=== PATIENT | male | born 1985 | race Caucasian/White ===

== ENCOUNTER 2016-12-11 22:11 | Emergency (ER) | payer MEDICAID, OTHER, SELFPAY ==
[~2016-12-11] VITALS: Ht 172.7 cm; Wt 75.4 kg
[2016-12-11 22:11] VITALS: BP 140/84
--- NOTE | 2016-12-12 01:20 | REPUSA ---
CLINICAL HISTORY: Neck pain. TECHNIQUE: Multiple axial images were obtained through the cervical spine. Images were also reconstru cted in coronal and sagittal planes. The study was performed without IV contrast. COMMENTS: Reversal of the cervical lordosis which can be secondary to muscular spasm and pain. Moderate focal spondylosis at C6-C7. There is no fracture or spondylolisthesis visualized. The paraspinal soft tissues are unremarkable. There are no lytic or blastic lesions. IMPRESSION: 1. No fracture or spondylolisthesis. 2. Reversal of cervical lordosis is seen, suggesting muscular spasm. 3. Spondylosis. Thank you for your kind referral of this patient.
--- NOTE | 2016-12-12 01:30 | REPUSA ---
HISTORY: Trauma. COMPARISON: None. TECHNIQUE: Multiple thin section helically-acquired axially-displayed and helically acquired coronall y displayed computed tomographic images of the face are obtained from the mandible through the fronta l sinuses, with images obtained at soft tissue and bone window. 2D reformatted images were performed. FINDINGS: Normal bony mineralization. No fractures. Normal orbits. Normal, clear paranasal sinuses. Normal oral and nasal cavities. Normal infratemporal fossa and deep parapharyngeal spaces with normal muscles of mastication. Normal parotid and submandibular glands. IMPRESSION: Normal examination of the face. Thank you for your kind referral of this patient
== END 2016-12-12 03:20 | disposition left against medical advice (07) ==
LOC: M ED 22:11
DX: S09.90XA Unspecified injury of head, initial encounter (principal); F32.9 Major depressive disorder, single episode, unspecified; W50.0XXA Accidental hit or strike by another person, initial encounter; Y92.9 Unspecified place or not applicable; Y93.9 Activity, unspecified; Y99.9 Unspecified external cause status; F17.200 Nicotine dependence, unspecified, uncomplicated; F12.10 Cannabis abuse, uncomplicated; M47.812 Spondylosis without myelopathy or radiculopathy, cervical region

== ENCOUNTER 2017-08-26 10:56 | Emergency (ER) | payer OTHER, MEDICAID ==
[2017-08-26] MEDS: NS 1,000 ML IV (12:00)
[2017-08-26] MEDS: PANTOPRAZOLE 40MG INJ (PROTONIX) (C9113) IV (12:00)
[2017-08-26 12:12] LABS: BASO # 0.1 10^3/uL (0.0-0.2); BASO % 0.8 % (0.0-1.0); EOS # 0.3 10^3/uL (0.0-0.50); EOS % 2.5 % (0.0-3.0); HEMATOCRIT 47.5 % (42.0-52.0); HEMOGLOBIN 16.3 g/dl (13.5-17.5); IMMATURE GRANULOCYTE % 1.3 % (0-3.0); LYMPH # 3.2 10^3/uL (1.5-4.5); LYMPH % 27.8 % (24.0-44.0); MEAN CORPUSCULAR HEMOGLOBIN 31.7 pg (27.0-33.0); MEAN CORPUSCULAR HGB CONC 34.3 g/dl (32.0-36.5); MEAN CORPUSCULAR VOLUME 92.4 fl (80.0-96.0); MONO # 0.8 10^3/uL (0.0-0.8); MONO % 6.7 % (0.0-5.0); NEUTROPHILS # 7.1 10^3/uL (1.8-7.7); NEUTROPHILS % 60.9 % (36.0-66.0); PLATELET COUNT, AUTOMATED 252 10^3/uL (150-450); RED BLOOD COUNT 5.14 10^6/uL (4.30-6.10); RED CELL DISTRIBUTION WIDTH 11.9 % (11.5-14.5); WHITE BLOOD COUNT 11.6 10^3/uL (4.0-10.0)
[2017-08-26] MEDS: MORPHINE 4 MG/ML 1ML VIAL/SYRINGE (J2270) IV (12:16)
[2017-08-26 12:25] LABS: INR 0.92; PROTHROMBIN TIME 12.4 SECONDS (12.4-14.5)
[2017-08-26 12:26] LABS: PARTIAL THROMBOPLASTIN TIME 27.1 SECONDS (26.8-37.9)
[2017-08-26 12:38] LABS: ALBUMIN 4.1 GM/DL (3.2-5.2); ALBUMIN/GLOBULIN RATIO 1.14 (1.00-1.93); ALKALINE PHOSPHATASE 110 U/L (45-117); ALT/SGPT 23 U/L (12-78); ANION GAP 3 MEQ/L (8-16); AST/SGOT 12 U/L (7-37); BILIRUBIN,DIRECT 0.1 MG/DL (0.0-0.2); BILIRUBIN,TOTAL 0.5 MG/DL (0.2-1.0); BLOOD UREA NITROGEN 14 MG/DL (7-18); CALCIUM LEVEL 9.1 MG/DL (8.5-10.1); CARBON DIOXIDE LEVEL 27 MEQ/L (21-32); CHLORIDE LEVEL 110 MEQ/L (98-107); CREATININE FOR GFR 0.84 MG/DL (0.70-1.30); GLOMERULAR FILTRATION RATE > 60.0 (>60); GLUCOSE, FASTING 77 MG/DL (70-100); LIPASE 78 U/L (73-393); POTASSIUM SERUM 4.5 MEQ/L (3.5-5.1); SODIUM LEVEL 140 MEQ/L (136-145); TOTAL PROTEIN 7.7 GM/DL (6.4-8.2)
[2017-08-26] MEDS: GASTROGRAFIN SOLUTION 30ML PO ×2 (13:13→13:45)
[2017-08-26] MEDS ORDERED: ISOVUE-370 76% 100ML VIAL (Q9967) As Ordered (14:26)
[2017-08-26] MEDS: SUCRALFATE 1 GM TAB PO (15:00)
== END 2017-08-26 15:15 | disposition home or self-care (01) ==
LOC: M ED 10:56
DX: K21.9 Gastro-esophageal reflux disease without esophagitis (principal); K27.9 Peptic ulcer, site unspecified, unspecified as acute or chronic, without hemorrhage or perforation; Z98.890 Other specified postprocedural states
CPT/HCPCS: C9113

== ENCOUNTER 2017-09-25 23:18 | Emergency (ER) | payer OTHER ==
[2017-09-26] MEDS: PANTOPRAZOLE 40MG INJ (PROTONIX) (C9113) IV (00:41)
[2017-09-26 00:42] LABS: BASO # 0.1 10^3/uL (0.0-0.2); BASO % 0.7 % (0.0-1.0); EOS # 0.2 10^3/uL (0.0-0.50); EOS % 1.3 % (0.0-3.0); HEMATOCRIT 48.6 % (42.0-52.0); HEMOGLOBIN 16.7 g/dl (13.5-17.5); IMMATURE GRANULOCYTE % 0.7 % (0-3.0); LYMPH # 3.4 10^3/uL (1.5-4.5); LYMPH % 25.1 % (24.0-44.0); MEAN CORPUSCULAR HEMOGLOBIN 32.3 pg (27.0-33.0); MEAN CORPUSCULAR HGB CONC 34.4 g/dl (32.0-36.5); MONO % 7.6 % (0.0-5.0); NEUTROPHILS # 8.6 10^3/uL (1.8-7.7); NEUTROPHILS % 64.6 % (36.0-66.0); PLATELET COUNT, AUTOMATED 226 10^3/uL (150-450); RED BLOOD COUNT 5.17 10^6/uL (4.30-6.10); RED CELL DISTRIBUTION WIDTH 12.1 % (11.5-14.5); WHITE BLOOD COUNT 13.4 10^3/uL (4.0-10.0)
[2017-09-26] MEDS: GI COCKTAIL 50ML BTL(HYOSCYAMINE/MAALOX/LIDOCAINE VISCOUS)(1:3:1) PO (00:45)
[2017-09-26 01:08] LABS: ALBUMIN 4.3 GM/DL (3.2-5.2); ALBUMIN/GLOBULIN RATIO 1.23 (1.00-1.93); ALKALINE PHOSPHATASE 101 U/L (45-117); ALT/SGPT 30 U/L (12-78); ANION GAP 4 MEQ/L (8-16); AST/SGOT 20 U/L (7-37); BILIRUBIN,DIRECT 0.1 MG/DL (0.0-0.2); BILIRUBIN,TOTAL 0.4 MG/DL (0.2-1.0); BLOOD UREA NITROGEN 14 MG/DL (7-18); CALCIUM LEVEL 9.6 MG/DL (8.5-10.1); CARBON DIOXIDE LEVEL 31 MEQ/L (21-32); CHLORIDE LEVEL 105 MEQ/L (98-107); GLOMERULAR FILTRATION RATE > 60.0 (>60); GLUCOSE, FASTING 95 MG/DL (70-100); LIPASE 76 U/L (73-393); POTASSIUM SERUM 4.5 MEQ/L (3.5-5.1); SODIUM LEVEL 140 MEQ/L (136-145); TOTAL PROTEIN 7.8 GM/DL (6.4-8.2)
== END 2017-09-26 01:37 | disposition home or self-care (01) ==
LOC: M ED 23:18
DX: R10.13 Epigastric pain (principal); K25.9 Gastric ulcer, unspecified as acute or chronic, without hemorrhage or perforation; Z79.899 Other long term (current) drug therapy; F17.200 Nicotine dependence, unspecified, uncomplicated
CPT/HCPCS: C9113

== ENCOUNTER 2018-06-07 01:40 | Inpatient (IN) | payer MEDICAID, OTHER, SELFPAY ==
[~2018-06-07] VITALS: Ht 167.6 cm; Wt 84.5 kg
[~2018-06-07 01:40] MED LIST: CARA1TAB6 PO; NORCOTAB PO; OMEP40CA2 PO
[2018-06-07 02:21] LABS: HEMATOCRIT 49.3 % (42.0-52.0); HEMOGLOBIN 16.9 g/dl (13.5-17.5); MEAN CORPUSCULAR HEMOGLOBIN 31.9 pg (27.0-33.0); MEAN CORPUSCULAR HGB CONC 34.3 g/dl (32.0-36.5); PLATELET COUNT, AUTOMATED 238 10^3/uL (150-450); WHITE BLOOD COUNT 13.2 10^3/uL (4.0-10.0)
[2018-06-07 02:44] LABS: AMPHETAMINES LEVEL URINE NEGATIVE (NEGATIVE); BARBITURATES URINE NEGATIVE (NEGATIVE); BENZODIAZEPINES URINE NEGATIVE (NEGATIVE); CANNABINOIDS URINE POSITIVE (NEGATIVE); COCAINE METABOLITE URINE NEGATIVE (NEGATIVE); METHADONE URINE NEGATIVE (NEGATIVE); OPIATES URINE NEGATIVE (NEGATIVE); PHENCYCLIDINE URINE NEGATIVE (NEGATIVE)
[2018-06-07 02:54] LABS: ACETAMINOPHEN LEVEL < 2.0 UG/ML (10.0-30.0); ALBUMIN 4.1 GM/DL (3.2-5.2); ALT/SGPT 25 U/L (12-78); BILIRUBIN,DIRECT 0.1 MG/DL (0.0-0.2); BILIRUBIN,TOTAL 0.4 MG/DL (0.2-1.0); BLOOD UREA NITROGEN 18 MG/DL (7-18); CALCIUM LEVEL 8.7 MG/DL (8.5-10.1); CARBON DIOXIDE LEVEL 25 MEQ/L (21-32); CHLORIDE LEVEL 107 MEQ/L (98-107); CREATININE FOR GFR 0.88 MG/DL (0.70-1.30); ETHYL ALCOHOL (ETHANOL) < 0.003 % (0.000-0.010); GLOMERULAR FILTRATION RATE > 60.0 (>60); GLUCOSE, FASTING 95 MG/DL (70-100); POTASSIUM SERUM 4.2 MEQ/L (3.5-5.1); SALICYLATE LEVEL 2.3 MG/DL (5.0-30.0); SODIUM LEVEL 141 MEQ/L (136-145); TOTAL PROTEIN 7.2 GM/DL (6.4-8.2)
[2018-06-07] MEDS ORDERED: NICOTINE 21MG/24HR 1 EA TRANSDERMAL TD ONE (10:45)
[2018-06-07] MEDS ORDERED: OLANZapine ORAL DISINTEGRATING TAB 5MG PO PRN (17:15)
[2018-06-07] MEDS ORDERED: MOM 30ML SUSPENSION UDC PO PRN (17:15)
[2018-06-07 20:31] VITALS: BP 138/80
[2018-06-07] MEDS: traZODone 50 MG TAB PO PRN (22:37)
[2018-06-08 06:55] VITALS: BP 120/74
--- NOTE | 2018-06-08 08:47 | HPEPDOC ---
[facility] Medical History & Physical Date of Admission Jun 07, 2018 History and Physical PCP: None ATTENDING: Dr. Maria Del Carmen Thrasher HPI: 32 yo M admitted to [facility] for unspecified depressive disorder, being m edically examined today. No acute medical complaints today. Denies any fevers, chills, weakness, fatigue, SEGURA, CP, SOB, cough, palpitations, abdominal pain, N/V/D or changes in bowel or bladder habits. PMHx: Anxiety Depression History of SI GERD/PUD PSHX: Denies SOCHX: Resides in: [facility] [place] Marital Status: Significant other Kids: 2 Employment: Unemployed Tobacco use: 10 per day ETOH: Denies Illicit Drugs: Last used marijuana a few months ago IV Drug Use: Denies Tattoos done unprofessionally: 2 FAMHX: Mother: Alive, well Father: Unknown Siblings: One brother, 2 sisters Alive, well Children: Alive, well Unexpected deaths due to medical reasons: None. ROS: As noted in HPI, otherwise 11pt ROS of systems reviewed and remarkable for occasional abdominal pain. He states he has not had any abdominal discomfort recently. It usually occurs when he eats certain foods. He gets an acid taste in his mouth as well. He has been treated in the past for reflux. Does not take any medication on a regular basis. PE: GEN: 32 yo M, appears stated age. Well-nourished, well developed. No acute distress. Alert and oriented x 3. Flat affect, avoids eye contact HEENT: Normocephalic, atraumatic. Pupils are equal, round, and reactive to light. Extraocular movements are intact. No nystagmus appreciated. Sclera are nonicteric. Conjunctiva without injection. Nose midline. Nasal turbinates without bogginess. EACs both patent BL. TMs both visualized and teixeira with good cone of light, no bulging or erythema. No facial asymmetry. Moist mucous membranes. Dentition fair. Pharynx pink and moist, no cobblestoning. Neck supple, trachea midline. No lymphadenopathy or thyromegaly appreciated. CHEST: Regular rate and rhythm, +S1, +S2 LUNGS: Clear to auscultation bilaterally. No wheezes, rales, or rhonchi. Breathing appears symmetric and easy. Patient is speaking in full sentences. No accessory muscle use. ABD: Round, soft, non-tender, non-distended. +Bowel sounds throughout. No rebound or guarding. No costovertebral angle tenderness. EXT: Pulses 2+ bilaterally dorsalis pedis and radial. No lower extremity edema appreciated. SKIN: [place], dry, warm. Capillary refill <2sec. No rashes. NEURO: Alert and oriented x 3. Cranial nerves III-XII are intact. No focal deficits appreciated. EKG: Pending A&P: 32 yo M admitted to [facility] for unspecified depressive disorder 1. Psych. Plan per Psychiatry. Obtain baseline EKG to assure the safety of psychiatric medications as they can prolong the QT interval. 2. Nicotine dependence. Patch available. 3. GERD. Pepcid 10 mg twice a day as needed. 4. Follow up. No Primary Care Provider. Will attempt to establish PCP on discharge. 5. Substance use. Management per psychiatry. 6. Leukocytosis. Patient is afebrile. Asymptomatic. Possible stress response. Recheck CBC in a.m. 7. Staff member Kobe present throughout exam. Vital Signs Vital Signs Date Time Temp Pulse Resp B/P (MAP) Pulse Ox O2 Delivery O2 Flow Rate FiO2 06/08/18 06:55 97.8 52 16 120/74 (89) 06/07/18 20:06 99 06/07/18 06:36 Room Air Laboratory Data Labs 24H Item Value Date Time White Blood Count 13.2 10^3/uL H 06/07/18208 Red Blood Count 5.30 10^6/uL 06/07/18 020 Hemoglobin 16.9 g/dl 06/07/18208 Mean Corpuscular Volume 93.0 fl 06/07/18208 Hematocrit 49.3 % 06/07/18208 Mean Corpuscular Hemoglobin 31.9 pg 06/07/18208 Mean Corpuscular Hemoglobin Concent 34.3 g/dl 06/07/18208 Red Cell Distribution Width 12.2 % 06/07/18208 Platelet Count 238 10^3/uL 06/07/18208 Sodium Level 141 MEQ/L 06/07/18208 Potassium Level 4.2 MEQ/L 06/07/18208 Chloride Level 107 MEQ/L 06/07/18208 Carbon Dioxide Level 25 MEQ/L 06/07/18208 Anion Gap 9 MEQ/L 06/07/18208 Blood Urea Nitrogen 18 MG/DL 06/07/18 020 Creatinine 0.88 MG/DL 06/07/18208 Glomerular Filtration Rate > 60.0 06/07/18208 Fasting Glucose 95 MG/DL 06/07/18 0209 Calcium Level 8.7 MG/DL 06/07/18208 Total Bilirubin 0.4 MG/DL 06/07/18208 Direct Bilirubin 0.1 MG/DL 06/07/18208 Aspartate Amino Transf (AST/SGOT) 16 U/L 06/07/18 020 Alanine Aminotransferase (ALT/SGPT) 25 U/L 06/07/18208 Alkaline Phosphatase 100 U/L 06/07/18208 Total Protein 7.2 GM/DL 06/07/18208 Albumin 4.1 GM/DL 06/07/18208 Albumin/Globulin Ratio 1.32 06/07/18208 Thyroid Stimulating Hormone (TSH) 3.560 uIU/ML 06/07/18208 Salicylates Level 2.3 MG/DL L 06/07/18208 Urine Opiates Screen NEGATIVE 06/07/18204 Urine Methadone Screen NEGATIVE 06/07/18204 Acetaminophen Level < 2.0 UG/ML L 06/07/18208 Urine Barbiturates Screen NEGATIVE 06/07/18204 Urine Phencyclidine Screen NEGATIVE 06/07/18204 Urine Amphetamines Screen NEGATIVE 06/07/18204 Urine Benzodiazepines Screen NEGATIVE 06/07/18204 Urine Cocaine Metabolite Screen NEGATIVE 06/07/18204 Urine Cannabinoids Screen POSITIVE H 06/07/18204 Ethyl Alcohol Level < 0.003 % 06/07/18208 Home Medications No Active Prescriptions or Reported Meds Allergies Coded Allergies: Latex (Unverified Allergy, Mild, 06/08/18) patient states reaction to condoms, rash and itching Zuleyma Hoffmann Jun 08, 2018 08:47
[2018-06-08] MEDS: FAMOTIDINE 20 MG TAB PO SCH ×2 (09:29→20:58)
[2018-06-08] MEDS: PILL CRUSHER/CUTTER 1 EACH XX PRN (09:29)
--- NOTE | 2018-06-08 10:17 | MHHPEPDOC ---
General Date Of Admission: Jun 07, 2018 Legal Status: 9.39 Chief Complaint Patient held a knife to his throat and threatened to kill himself History of Present Illness HISTORY OF THE PRESENT ILLNESS: Patient is a 32 -year-old , male, who, as per Ed report: "Reason for Referral * PT is +SI Chief Complaint PT states he has been feeling depressed for a few months with trigger unknown.Tonight he took a steak knife and held it to his throat saying his was going to kill himself. His girlfriend of 3 years took the knife from him and called 911. PT repeatedly answers "I don't remember" when asked to discuss why he was suicidal or what his stressors are. Asked PT if he typically has memory issues and he says yes and then declines a TBI. Earle asked if he is suicidal "A little bit" When asked if he has hallucinations "Not sure" PT does states that the last month his depression symptoms have been at their worse and mentions being unemployed and that this time of year is boring. He will not CFS and isaccepting of being admitted stating this is the first time he has ever acted on a suicidal thought "So it will probably happen again". Psychiatric Review of Systems Depression (2 or more weeks): depressed mood (for months), anhedonia, insomnia/hypersomnia, decreased energy, difficulty concentrating, appetite changes, suicidal thoughts (He said he has been having them for months), other (Hopelessness and helplessness: " a litle") Laura (4 or more days of): denies Psychosis: denies PTSD: denies Anxiety: gen/non-specific anxiety, situational anxiety, stressor related anxiety, panic attacks Anxiety/ 6 months or more of: restlessness, keyed up, difficulty concentrating, irritability, muscle tension, sleep disturbance Past Psychiatric History Previous Psychiatric Diagnosis: Denies Previous Psychiatric Admissions: Denies Suicide Attempts: Denies but when he came to the ED his GF said he had put a knife to his throat Psychiatric Follow-up: Denies Psychiatric medications: Denies Past Medical History Medical Problems PMHx: Anxiety Depression History of SI GERD/PUD PSHX: Denies SOCHX: Resides in: [facility] [place] Marital Status: Significant other Kids: 2 Employment: Unemployed Tobacco use: 10 per day ETOH: Denies Illicit Drugs: Last used marijuana a few months ago IV Drug Use: Denies Tattoos done unprofessionally: 2 FAMHX: Mother: Alive, well Father: Unknown Siblings: One brother, 2 sisters Alive, well Children: Alive, well Unexpected deaths due to medical reasons: None. Head Injury: No Seizures: Yes (He doesn't know what caused it, he never received tx. for it) Hospitalizations: Yes (this one) Surgeries: No Family Medical/Psychiatric HX Medical Problems he is not aware of Psychiatric Disorders: No Addiction: No Suicide Attemps/Completions: Yes (his uncle) Addiction History denies Social History Childhood: He said "it was shitty", he said his parents had frequent fights, they slammed the doors, they yelled at each othe Abuse/Trauma: Denies Current Living Situation: Lives with a friend Education: Employment: Unemployed Social Support: the friend he lives with Legal: Marital: He says he has never been , he has two children and can't see them, they are from a previous relationship. Now he has another GF (the one who called the saddle maker on him). He says he hates women Mental Status Examination General Appearance: well groomed, appears stated age, hospital scubs/clothing Build: average Demeanor: hostile, guarded Eye Contact: avoidant Activity: hostile Behavior: resistant, loss of interests Speech: non-spontaneous, impoverished Mood: depressed, anxious, angry Affect: constricted, labile, hostile Thought Process: concrete Thought Content (Delusions): paranoia Thought Content (Other): guarded, appears paranoid Thought Content (Aggressive): none reported Perception (Hallucinations): none reported Perception (Other): none reported Cognition (Impairment of): none reported Cognition(Intelligence Est.): MR Oriented: Awake, Alert Insight: poor Judgment: Poor Psychosis: Denies Diagnoses 1. Major Depressive Disorder 2. Intellectual disability Initial Treatment Plan 1. Patient was admitted on a [9.39] status. 2. Complete history was obtained. 3. With patients permission, family will be contacted and database will be expanded. 4. Patients medication regimen will be reviewed and changed accordingly. 5. Patient will be provided with protected environment. 6. Patient will be treated with individual, group, and milieu therapies. 7. Patient will receive supportive psych-education. 8. Discharge planning will commence immediately. 9. Outpatient follow-up treatment will be strongly recommended. 10. The initial treatment plan will focus initially on: * Depression. * Risk for suicide. * Poor impulse control * Ineffective coping ESTIMATED LENGTH OF STAY: 5-7 DAYS. TIME SPENT COUNSELING AND COORDINATING INITIAL CARE: 30 minutes. Vital Signs Vital Signs Date Time Temp Pulse Resp B/P (MAP) Pulse Ox O2 Delivery O2 Flow Rate FiO2 06/08/18 06:55 97.8 52 16 120/74 (89) 06/07/18 20:06 99 06/07/18 06:36 Room Air Medications No Active Prescriptions or Reported Meds Allergies Coded Allergies: Latex (Unverified Allergy, Mild, 06/08/18) patient states reaction to condoms, rash and itching BRO SAMUEL MD Jun 08, 2018 10:15
[2018-06-08] MEDS: NICOTINE 21MG/24HR 1 EA TRANSDERMAL TD SCH (13:00)
[2018-06-08] MEDS: QUEtiapine FUMARATE 100 MG TAB PO SCH ×2 (15:12→20:58)
[2018-06-08] MEDS: SERTRALINE HCL 25 MG TABLET PO SCH (15:12)
[2018-06-08 18:00] VITALS: BP 148/83
[2018-06-08] MEDS: ACETAMINOPHEN TAB 650MG DOSE (2X325MG) PO PRN (20:57)
[2018-06-08] MEDS: traZODone 50 MG TAB PO PRN (20:57)
[2018-06-08] MEDS: OLANZapine ORAL DISINTEGRATING TAB 5MG PO PRN (20:58)
--- NOTE | 2018-06-09 00:39 | ECGEPIP ---
Stationary ECG Study [facility] Test Date: 2018-06-08 Pat Name: HECTOR CONNER Department: Room: [place] [address] Gender: M [place] Wirer: JOURDAN : 1985 Requested By: Zuleyma Hoffmann Order Number: [id number] Reading MD: Ba Velez Measurements Intervals [place] Rate: 49 P: 57 [place]: 133 QRS: 50 QRSD: 110 T: 27 QT: 426 QTc: 387 Interpretive Statements SINUS BRADYCARDIA NO PRIOR TRACING IN THE SYSTEM Electronically Signed On 06-09-2018 0:39:19 EST by Ba Velez
[2018-06-09 07:00] LABS: HEMATOCRIT 50.6 % (42.0-52.0); HEMOGLOBIN 16.8 g/dl (13.5-17.5); MEAN CORPUSCULAR HEMOGLOBIN 31.6 pg (27.0-33.0); MEAN CORPUSCULAR HGB CONC 33.2 g/dl (32.0-36.5); MEAN CORPUSCULAR VOLUME 95.3 fl (80.0-96.0); PLATELET COUNT, AUTOMATED 227 10^3/uL (150-450); RED BLOOD COUNT 5.31 10^6/uL (4.30-6.10); WHITE BLOOD COUNT 10.9 10^3/uL (4.0-10.0)
[2018-06-09 07:13] VITALS: BP 110/60
[2018-06-09] MEDS: QUEtiapine FUMARATE 100 MG TAB PO SCH ×3 (09:23→20:28)
[2018-06-09] MEDS: SERTRALINE HCL 25 MG TABLET PO SCH (09:24)
[2018-06-09] MEDS: FAMOTIDINE 20 MG TAB PO SCH ×2 (09:24→20:28)
[2018-06-09] MEDS: NICOTINE 21MG/24HR 1 EA TRANSDERMAL TD SCH (09:24)
[2018-06-09] MEDS: PILL CRUSHER/CUTTER 1 EACH XX PRN (09:24)
[2018-06-09] MEDS: ACETAMINOPHEN TAB 650MG DOSE (2X325MG) PO PRN (16:17)
[2018-06-09] MEDS ORDERED: BENZOCAINE 10% 9GM TUBE (ANBESOL) TOP PRN (16:30)
[2018-06-09 18:00] VITALS: BP 148/79
--- NOTE | 2018-06-09 20:16 | MHIPNPDOC ---
[facility] Progress Note Progress Note DATE OF SERVICE: 06/09/18 HISTORY: HISTORY OF THE PRESENT ILLNESS: Patient is a 32 -year-old , male, who, as per Ed report: "Reason for Referral * PT is +SI Chief Complaint PT states he has been feeling depressed for a few months with trigger unknown.Tonight he took a steak knife and held it to his throat saying his was going to kill himself. His girlfriend of 3 years took the knife from him and called 911. PT repeatedly answers "I don't remember" when asked to discuss why he was suicidal or what his stressors are. Asked PT if he typically has memory issues and he says yes and then declines a TBI. Whan asked if he is suicidal "A little bit" When asked if he has hallucinations "Not sure" PT does states that the last month his depression symptoms have been at their worse and mentions being unemployed and that this time of year is boring. He will not CFS and isaccepting of being admitted stating this is the first time he has ever acted on a suicidal thought "So it will probably happen again". VITAL SIGNS: See below. NEW TEST RESULTS: See below CURRENT MEDICATIONS: See below. MENTAL STATUS EXAMINATION: General Appearance: well groomed, appears stated age, hospital scubs/clothing Build: average Demeanor: less guarded, less angry, less hostile Eye Contact: avoidant Activity: hostile Behavior: resistant, loss of interests Speech: non-spontaneous, impoverished Mood: depressed, anxious Affect: constricted Thought Process: concrete Thought Content (Delusions): paranoia Thought Content (Other): less guarded Thought Content (Aggressive): none reported Perception (Hallucinations): none reported Perception (Other): none reported Cognition (Impairment of): none reported Cognition(Intelligence Est.): MR Oriented: Awake, Alert Insight: poor Judgment: Poor Psychosis: Denies Diagnoses 1. Major Depressive Disorder 2. Intellectual disability ASSESSMENT: Patient says he feels better, he looks less angry, less hostile than yesterday. He says he slept well and he thinks this has helped. He denies SI, HI at this time. Patient is limited and is not insightful about his problem for the same reason. If patient continues to improve he will be discharged to the same lady that referred him to the ED, who has said that apparently, he has very low frustration tolerance and whenever he feels frustrated he immediately says he is going to kill himself. MANAGEMENT PLAN: will continue with the same treatment plan TIME SPENT: 20 minutes. Vital Signs Vital Signs Date Time Temp Pulse Resp B/P (MAP) Pulse Ox O2 Delivery O2 Flow Rate FiO2 06/09/18 18:00 97.1 75 16 148/79 (102) 06/07/18 20:06 99 06/07/18 06:36 Room Air Laboratory Data 24H Labs Laboratory Tests 2 06/09/18 06:29: Nucleated Red Blood Cells % (auto) 0.0 CBC/BMP Laboratory Tests 06/09/18 06:29 Red Blood Count 5.31, Mean Corpuscular Volume 95.3, Mean Corpuscular Hemoglobin 31.6, Mean Corpuscular Hemoglobin Concent 33.2, Red Cell Distribution Width 12.4 Current Medications Current Medications Acetaminophen (Tylenol Tab) 650 mg Q6HP PRN PO HEADACHE or DISCOMFORT Last administered on 06/09/18at 16:17; Start 06/07/18 at 17:15 Al Hydrox/Mg Hydrox/Simethicone (Mylanta) 30 ml Q4HP PRN PO HEARTBURN/INDIGESTION; Start 06/07/18 at 17:15 Benzocaine (Anbesol Gel) APPLY TO AFFECTED TOOTH/... Q2HP PRN TOP PAIN; Start 06/09/18 at 16:30 Famotidine (Pepcid) 10 mg BID PO Last administered on 06/09/18at 09:24; Start 06/08/18 at 09:00 Home Med (Med Rec Complete!) ASDIRECTED XX ; Start 06/07/18 at 17:00; Stop 06/07/18 at 17:02; Status DC Magnesium Hydroxide (Milk Of Magnesia) 30 ml DAILYPRN PRN PO CONSTIPATION; Start 06/07/18 at 17:15 Nicotine (Nicoderm Cq 21mg) 1 patch DAILY TD Last administered on 06/09/18at 09:24; Start 06/08/18 at 09:00 Olanzapine (ZyPREXA ZYDIS) 5 mg Q4HP PRN PO AGITATION/ANXIETY Last administered on 06/08/18at 20:58; Start 1/31/19 at 14:45 Olanzapine (ZyPREXA ZYDIS) 5 mg Q6HP PRN PO agitation/anxiety Last administered on 06/07/18at 23:02; Start 06/07/18 at 17:15; Stop 06/08/18 at 14:39; Status DC Quetiapine Fumarate (SEROquel) 100 mg TID PO Last administered on 06/09/18at 16:16; Start 06/08/18 at 16:00 Sertraline HCl (Zoloft) 25 mg DAILY PO Last administered on 06/09/18at 09:24; Start 06/08/18 at 15:00 Trazodone HCl (Desyrel) 50 mg QHSP PRN PO INSOMNIA Last administered on 06/08/18at 20:57; Start 06/07/18 at 17:15 Allergies Coded Allergies: Latex (Unverified Allergy, Mild, 06/08/18) patient states reaction to condoms, rash and itching BRO SAMUEL MD Jun 09, 2018 20:09
[2018-06-09] MEDS: traZODone 50 MG TAB PO PRN (20:32)
[2018-06-10 06:38] VITALS: BP 109/66
[2018-06-10] MEDS: NICOTINE 21MG/24HR 1 EA TRANSDERMAL TD SCH (07:59)
[2018-06-10] MEDS: QUEtiapine FUMARATE 100 MG TAB PO SCH ×3 (08:00→20:39)
[2018-06-10] MEDS: FAMOTIDINE 20 MG TAB PO SCH ×2 (08:00→20:39)
[2018-06-10] MEDS: SERTRALINE HCL 25 MG TABLET PO SCH (08:00)
[2018-06-10] MEDS: ACETAMINOPHEN TAB 650MG DOSE (2X325MG) PO PRN ×2 (09:02→15:32)
--- NOTE | 2018-06-10 09:11 | MHIPNPDOC ---
[facility] Progress Note Progress Note DATE OF SERVICE: 06/10/18 HISTORY: Per Dr. Tolentino: "PT states he has been feeling depressed for a few months with trigger unknown.Tonight he took a steak knife and held it to his throat saying his was going to kill himself. His girlfriend of 3 years took the knife from him and called 911. PT repeatedly answers "I don't remember" when asked to discuss why he was suicidal or what his stressors are. Asked PT if he typically has memory issues and he says yes and then declines a TBI. Wholaf asked if he is suicidal "A little bit" When asked if he has hallucinations "Not sure" PT does states that the last month his depression symptoms have been at their worse and mentions being unemployed and that this time of year is boring. He will not CFS and isaccepting of being admitted stating this is the first time he has ever acted on a suicidal thought "So it will probably happen again"." VITAL SIGNS: See below. NEW TEST RESULTS: See below CURRENT MEDICATIONS: See below. MENTAL STATUS EXAMINATION: General Appearance: well groomed, appears stated age, hospital scrubs/clothing Build: average Demeanor: less guarded, no longer anger or hostile Eye Contact: fair Activity: calm Behavior: cooperative Speech: spontaneous, reg rate/rhythm/volume Mood: less depressed and anxious Affect: less constricted, more full Thought Process: concrete Thought Content (Delusions): denies Thought Content (Other): less guarded Thought Content (Aggressive): none reported Perception (Hallucinations): none reported Perception (Other): none reported Cognition (Impairment of): none reported Cognition(Intelligence Est.): MR Oriented: Awake, Alert Insight: poor Judgment: Poor Psychosis: Denies Diagnoses 1. Major Depressive Disorder 2. Intellectual disability ASSESSMENT: Patient says he feels better, as he's finding his medication and the unit treatment beneficial. States he thinks increasing zoloft would be more beneficial for him and would like to increase it. States he slept well last night. C/O tooth ache and will start motrin 800mg q6hr prn pain. He is attending groups and finding them helpful. He denies anger, insomnia, SI/HI, hallucinations, delusions. Pt feels safe here. MANAGEMENT PLAN: Continue Dr. Tolentino's plan. Increase zoloft to 50mg daily for mood. Start motrin 800mg q6hr prn pain for tooth ache. TIME SPENT: 20 minutes. Vital Signs Vital Signs Date Time Temp Pulse Resp B/P (MAP) Pulse Ox O2 Delivery O2 Flow Rate FiO2 06/10/18 08:14 Room Air 06/10/18 06:38 96.7 50 16 109/66 (80) 06/07/18 20:06 99 Current Medications Current Medications Acetaminophen (Tylenol Tab) 650 mg Q6HP PRN PO HEADACHE or DISCOMFORT Last administered on 06/09/18at 16:17; Start 06/07/18 at 17:15 Al Hydrox/Mg Hydrox/Simethicone (Mylanta) 30 ml Q4HP PRN PO HEARTBURN/INDIGESTION; Start 06/07/18 at 17:15 Benzocaine (Anbesol Gel) APPLY TO AFFECTED TOOTH/... Q2HP PRN TOP PAIN; Start 06/09/18 at 16:30 Famotidine (Pepcid) 10 mg BID PO Last administered on 06/10/18at 08:00; Start 06/08/18 at 09:00 Home Med (Med Rec Complete!) ASDIRECTED XX ; Start 06/07/18 at 17:00; Stop 06/07/18 at 17:02; Status DC Magnesium Hydroxide (Milk Of Magnesia) 30 ml DAILYPRN PRN PO CONSTIPATION; Start 06/07/18 at 17:15 Nicotine (Nicoderm Cq 21mg) 1 patch DAILY TD Last administered on 06/10/18at 07:59; Start 06/08/18 at 09:00 Olanzapine (ZyPREXA ZYDIS) 5 mg Q4HP PRN PO AGITATION/ANXIETY Last administered on 06/08/18at 20:58; Start 06/08/18 at 14:45 Olanzapine (ZyPREXA ZYDIS) 5 mg Q6HP PRN PO agitation/anxiety Last administered on 06/07/18at 23:02; Start 06/07/18 at 17:15; Stop 06/08/18 at 14:39; Status DC Quetiapine Fumarate (SEROquel) 100 mg TID PO Last administered on 06/10/18at 08:00; Start 06/08/18 at 16:00 Sertraline HCl (Zoloft) 25 mg DAILY PO Last administered on 06/10/18at 08:00; Start 06/08/18 at 15:00 Trazodone HCl (Desyrel) 50 mg QHSP PRN PO INSOMNIA Last administered on 06/09/18at 20:32; Start 06/07/18 at 17:15 Allergies Coded Allergies: Latex (Unverified Allergy, Mild, 06/08/18) patient states reaction to condoms, rash and itching KELY VIEIRA DO Jun 10, 2018 9:11 am
[2018-06-10] MEDS: IBUPROFEN 800 MG TAB PO PRN ×2 (10:24→20:39)
[2018-06-10 18:00] VITALS: BP 135/89
[2018-06-10] MEDS: OLANZapine ORAL DISINTEGRATING TAB 5MG PO PRN (20:39)
[2018-06-10] MEDS: traZODone 50 MG TAB PO PRN (20:53)
[2018-06-11 06:43] VITALS: BP 124/67
[2018-06-11] MEDS: FAMOTIDINE 20 MG TAB PO SCH ×2 (08:42→19:58)
[2018-06-11] MEDS: SERTRALINE HCL 50 MG TAB PO SCH (08:42)
[2018-06-11] MEDS: NICOTINE 21MG/24HR 1 EA TRANSDERMAL TD SCH (08:42)
[2018-06-11] MEDS: QUEtiapine FUMARATE 100 MG TAB PO SCH ×3 (08:42→19:58)
[2018-06-11] MEDS: CHLORHEXIDINE GLUCONATE 0.12 % 15ML UDC (PERIDEX ORAL RINSE) MT SCH ×2 (08:59→19:59)
[2018-06-11] MEDS: IBUPROFEN 800 MG TAB PO PRN ×2 (08:59→16:15)
[2018-06-11] MEDS: MAALOX 30 ML SUSP *UDC PO PRN ×2 (16:18→20:02)
[2018-06-11 18:00] VITALS: BP 133/80
[2018-06-11] MEDS: OLANZapine ORAL DISINTEGRATING TAB 5MG PO PRN ×2 (19:05→23:16)
[2018-06-11] MEDS: traZODone 50 MG TAB PO PRN (19:58)
[2018-06-11] MEDS ORDERED: traZODone 50 MG TAB PO ONE (23:15)
[2018-06-12 06:44] VITALS: BP 150/74
[2018-06-12] MEDS: PILL CRUSHER/CUTTER 1 EACH XX PRN (08:05)
[2018-06-12] MEDS: FAMOTIDINE 20 MG TAB PO SCH (08:05)
[2018-06-12] MEDS: QUEtiapine FUMARATE 100 MG TAB PO SCH (08:06)
[2018-06-12] MEDS: SERTRALINE HCL 50 MG TAB PO SCH (08:06)
[2018-06-12] MEDS: NICOTINE 21MG/24HR 1 EA TRANSDERMAL TD SCH (08:07)
[2018-06-12] MEDS: CHLORHEXIDINE GLUCONATE 0.12 % 15ML UDC (PERIDEX ORAL RINSE) MT SCH (08:07)
[2018-06-12] MEDS: IBUPROFEN 800 MG TAB PO PRN (08:13)
[2018-06-12] MEDS ORDERED: CARBAMIDE PEROXIDE 6.5% OTIC SOLN 15ML AU SCH (09:00)
--- NOTE | 2018-06-12 10:48 | IPNPDOC ---
Date Seen The patient was seen on 06/12/18. Progress Note HPI: 32 yo M admitted to [facility] for unspecified depressive disorder. I was requested to re evaluate pt related to decreased hearing Lt ear. Denies any fevers, chills, weakness, fatigue, SEGURA, CP, SOB, cough, palpitations, abdominal pain, N/V/D or changes in bowel or bladder habits. PMHx: Anxiety Depression History of SI GERD/PUD PSHX: Denies PE: GEN: 32 yo M, appears stated age. Well-nourished, well developed. No acute distress. Alert and oriented x 3. Flat affect, avoids eye contact HEENT: Normocephalic, atraumatic. Pupils are equal, round, and reactive to light. Extraocular movements are intact. No nystagmus appreciated. Sclera are nonicteric. Conjunctiva without injection. Nose midline. EAC on Left and Rt partially obstructed with crumen, no erythema. Moist mucous membranes. Dentition fair. Pharynx pink and moist, no cobblestoning. Neck supple, trachea midline. No lymphadenopathy or thyromegaly appreciated. CHEST: Regular rate and rhythm, +S1, +S2 LUNGS: Clear to auscultation bilaterally. No wheezes, rales, or rhonchi. ABD: Round, soft, non-tender, non-distended. +Bowel sounds throughout. No rebound or guarding. No costovertebral angle tenderness. EXT: No lower extremity edema appreciated. SKIN: [place], dry, warm. No rashes. NEURO: Alert and oriented x 3. No focal deficits appreciated. EKG: SINUS BRADYCARDIA NO PRIOR TRACING IN THE SYSTEM Electronically Signed On 06-09-2018 0:39:19 EST by Ba Velez A&P: 32 yo M admitted to [facility] for unspecified depressive disorder 1. Psych. Plan per Psychiatry. EKG on file. 2. Nicotine dependence. Patch available. 3. GERD. Pepcid 20 mg daily as needed. 4. Follow up. No Primary Care Provider. Will attempt to establish PCP on discharge. 5. Substance use. Management per psychiatry. 6. Cerumen B/L ear canals. Debrox BID x 4 days. Monitor. 7. Staff member Kobe present throughout exam. VS, I&O, 24H, Fishbone Vital Signs/I&O Vital Signs Date Time Temp Pulse Resp B/P (MAP) Pulse Ox O2 Delivery O2 Flow Rate FiO2 06/12/18 06:44 97.8 98 16 150/74 (99) 06/11/18 18:00 98 06/11/18 08:45 Room Air Zuleyma Hoffmann Jun 12, 2018 10:48
[2018-06-12] MEDS ORDERED: IBUP80TA PO (11:13)
[2018-06-12] MEDS ORDERED: Benzocaine Gel TOP (11:13)
[2018-06-12] MEDS ORDERED: QUET1TAB8 PO (11:13)
[2018-06-12] MEDS ORDERED: EAR6.5DR10 AU (11:13)
[2018-06-12] MEDS ORDERED: TRAZO50TA PO (11:13)
[2018-06-12] MEDS ORDERED: NICO21PAT TD (11:13)
[2018-06-12] MEDS ORDERED: SERT50TA PO (11:13)
[2018-06-12] MEDS ORDERED: FAMO20TA PO (11:13)
[2018-06-12] MEDS ORDERED: PERI12LIQ MT (11:13)
[2018-06-12] MEDS: MAALOX 30 ML SUSP *UDC PO PRN (11:18)
[2018-06-12] MEDS ORDERED: RISP2TAB32 PO (14:15)
[2018-06-12] MEDS ORDERED: BENZ-52 PO (14:17)
[2018-06-13] MEDS ORDERED: FAMOTIDINE 20 MG TAB PO SCH (09:00)
--- NOTE | 2018-06-27 10:49 | MHDSPDOC ---
[facility] Discharge Summary Discharge Summary DATE OF ADMISSION: Jun 07, 2018 at 17:04 DATE OF DISCHARGE: Jun 12, 2018 at 12:50 DISCHARGE DIAGNOSES: 1. Major Depressive Disorder 2. Intellectual disability REASON FOR ADMISSION: Chief Complaint Patient held a knife to his throat and threatened to kill himself History of Present Illness HISTORY OF THE PRESENT ILLNESS: Patient is a 32 -year-old , male, who, as per Ed report: "Reason for Referral * PT is +SI Chief Complaint PT states he has been feeling depressed for a few months with trigger unknown.Tonight he took a steak knife and held it to his throat saying his was going to kill himself. His girlfriend of 3 years took the knife from him and called 911. PT repeatedly answers "I don't remember" when asked to discuss why he was suicidal or what his stressors are. Asked PT if he typically has memory issues and he says yes and then declines a TBI. Earle asked if he is suicidal "A little bit" When asked if he has hallucinations "Not sure" PT does states that the last month his depression symptoms have been at their worse and mentions being unemployed and that this time of year is boring. He will not CFS and isaccepting of being admitted stating this is the first time he has ever acted on a suicidal thought "So it will probably happen again". CONSULTANTS INVOLVED: None TREATMENT AND PROGRESS ON THE UNIT : The patient was intellectually limited and when he becomes frustrated, he says that he is going to kill himself. The lady that lives with him (not his girlfriend, not his , not a relative), says that is his usual pattern of behavior and many times she has been able to help him but she couldn't this time, he was very frustrated and she feared that he was going to hurt himself. when he was itinitially evaluated, he was very irritable but he had a good response to his medications, since tw prescribed Risperdal 1 mg PO BID for anger and impulsivity control. TW also prescribed Zoloft 50 mgs to help him to feel better with his depression and anxiety. The patient became less irritable, less anxious, less edgy. i believe that part of his irritability was caused by anxiety and depresion and he doesn't know how to cope with frustration and anger, therefore he will benefit from therapy to learn coping skills. HOSPITAL COURSE: As above DISCHARGE ASSESSMENT: Patient was not homicidal, not suicidal and not psychotic at the time of his discharge. His mood and affect were brighter, her impulse control and frustration tolerance had improved and his anger had decreased. He was not in danger to self or others at the time of his discharge. MENTAL STATUS EXAMINATION ON DISCHARGE: General Appearance: well groomed, appears stated age, hospital scubs/clothing Build: average Demeanor: less guarded, less angry, less hostile Eye Contact: improved Activity: cooperative Behavior: resistant, loss of interests Speech: non-spontaneous, impoverished Mood: brighter mood. he says he fels better, he says he is not angry Affect: constricted Thought Process: concrete Thought Content (Delusions): paranoia Thought Content (Other): less guarded Thought Content (Aggressive): none reported Perception (Hallucinations): none reported Perception (Other): none reported Cognition (Impairment of): none reported Cognition(Intelligence Est.): MR Oriented: Awake, Alert Insight: poor Judgment: Poor Psychosis: Denies Diagnoses 1. Major Depressive Disorder 2. Intellectual disability MEDICATIONS ON DISCHARGE: Scheduled Benztropine Mesylate (Benztropine Mesylate) 1 Mg Tab, 1 MG PO BID for EPS for 7 Days, #14 Carbamide Peroxide (Ear Drops) 6.5 % Pilar, 5 DROP AU BID for ear infection, #1 Chlorhexidine Gluconate (Chlorhexidine Gluconate) 0.12 % Pilar, 15 ML MT BID for toothe ache, #1 Famotidine (Pepcid) 20 Mg Tab, 20 MG PO DAILY for gerd, #7 Nicotine (Nicotine Transdermal Syst) 21 Mg/24 Hr Dis, 1 PATCH TD DAILY for nicotine withdrawals, #7 Risperidone (Risperdal) 2 Mg Tab, 1 TAB PO BID for mood/psychosis for 7 Days, #14 Sertraline Hcl (Sertraline HCl) 50 Mg Tab, 50 MG PO DAILY for depression, #7 Scheduled PRN Ibuprofen (Ibuprofen) 800 Mg Tab, 800 MG PO Q6HP PRN for MODERATE PAIN (PS 5-7), #28 Trazodone HCl (Trazodone HCl) 50 Mg Tab, 50 MG PO QHSP PRN for INSOMNIA, #7 [Benzocaine Gel] 1 DOSE/9 GM GEL, 1 DOSE TOP Q2HP PRN for PAIN, #1 PLAN/FOLLOWUP ARRANGEMENTS: Follow Up Care Education Label * [facility]t [facility] * [facility] * Established With This Provider No * Therapist AVINASH * Date Jun 14, 2018 * Time 09:00 * Address of Clinic or Practice [address] [place] [address] * Follow Up Care Education Label * Medical * Medical Follow Up [facility] * Established With This Provider No * Therapist Ju * Date Jul 19, 2018 * Time 13:00 * Address of Clinic or Practice [address] [place] [id number] [address] * Follow Up Care Education Label * Medicaid transportation * Additional information Call [phone] 48-72 hours in advance to arrange transportation to any medical or mental health appointments. Follow Up Care Education Label * Mental Health Appt 2 * [facility] * Established With This Provider Yes * Therapist NIRU * Date Jul 04, 2018 * Time 10:30 * Address of Clinic or Practice [address] [place] [address] * Follow Up Care Education Label * Care Coordination * Care Coordination/Case Management/Supervision [facility] * Grinder Set Up Operator External Anh Warren * Phone Number [phone] * Additional information Call to follow up on your referral with Anh. She will set up a time to come out and meet with you. The amount of time spent in the coordination of care for this patient was approximately 30 minutes. Medications Scheduled Benztropine Mesylate (Benztropine Mesylate) 1 Mg Tab, 1 MG PO BID for EPS for 7 Days, #14 Carbamide Peroxide (Ear Drops) 6.5 % Pilar, 5 DROP AU BID for ear infection, #1 Chlorhexidine Gluconate (Chlorhexidine Gluconate) 0.12 % Pilar, 15 ML MT BID for toothe ache, #1 Famotidine (Pepcid) 20 Mg Tab, 20 MG PO DAILY for gerd, #7 Nicotine (Nicotine Transdermal Syst) 21 Mg/24 Hr Dis, 1 PATCH TD DAILY for nicotine withdrawals, #7 Risperidone (Risperdal) 2 Mg Tab, 1 TAB PO BID for mood/psychosis for 7 Days, #14 Sertraline Hcl (Sertraline HCl) 50 Mg Tab, 50 MG PO DAILY for depression, #7 Scheduled PRN Ibuprofen (Ibuprofen) 800 Mg Tab, 800 MG PO Q6HP PRN for MODERATE PAIN (PS 5-7), #28 Trazodone HCl (Trazodone HCl) 50 Mg Tab, 50 MG PO QHSP PRN for INSOMNIA, #7 [Benzocaine Gel] 1 DOSE/9 GM GEL, 1 DOSE TOP Q2HP PRN for PAIN, #1 Allergies Coded Allergies: Latex (Unverified Allergy, Mild, 06/08/18) patient states reaction to condoms, rash and itching BRO SAMUEL MD Jun 27, 2018 10:49
== END 2018-06-12 12:50 | disposition home or self-care (01) | DRG 754 ==
LOC: M ED 01:40 → M ED INP 17:04 → M PSY 20:15
PROVIDERS: ADMIT Psychiatry & Neurology Psychiatry; ATTEND Psychiatry & Neurology Psychiatry
DX: F32.9 Major depressive disorder, single episode, unspecified (principal); F79 Unspecified intellectual disabilities; R45.851 Suicidal ideations; F41.9 Anxiety disorder, unspecified; K21.9 Gastro-esophageal reflux disease without esophagitis; K27.9 Peptic ulcer, site unspecified, unspecified as acute or chronic, without hemorrhage or perforation; F17.200 Nicotine dependence, unspecified, uncomplicated; D72.829 Elevated white blood cell count, unspecified; H61.23 Impacted cerumen, bilateral

== ENCOUNTER 2018-08-08 22:47 | Emergency (ER) | payer MEDICAID, OTHER ==
[~2018-08-08] VITALS: Ht 177.8 cm; Wt 94.7 kg
[~2018-08-08 22:47] MED LIST changes: +BENZ-52 PO; +Benzocaine Gel TOP; +EAR6.5DR10 AU; +FAMO20TA PO; +HYDR-3715 PO; +IBUP80TA PO; +NICO21PAT TD; -NORCOTAB PO; +PERI12LIQ MT; +QUET1TAB8 PO; +RISP2TAB32 PO; +SERT-141 PO; +TRAZO50TA PO
[2018-08-08 23:32] LABS: BASO # 0.1 10^3/uL (0.0-0.2); BASO % 0.7 % (0.0-1.0); EOS # 0.2 10^3/uL (0.0-0.50); EOS % 2.1 % (0.0-3.0); HEMATOCRIT 47.2 % (42.0-52.0); HEMOGLOBIN 16.1 g/dl (13.5-17.5); LYMPH # 3.7 10^3/uL (1.5-4.5); LYMPH % 33.9 % (24.0-44.0); MEAN CORPUSCULAR HGB CONC 34.1 g/dl (32.0-36.5); MEAN CORPUSCULAR VOLUME 93.8 fl (80.0-96.0); MONO # 0.8 10^3/uL (0.0-0.8); MONO % 6.9 % (0.0-5.0); NEUTROPHILS # 6.1 10^3/uL (1.8-7.7); NEUTROPHILS % 55.2 % (36.0-66.0); PLATELET COUNT, AUTOMATED 221 10^3/uL (150-450); RED BLOOD COUNT 5.03 10^6/uL (4.30-6.10)
[2018-08-08 23:53] LABS: ALBUMIN 4.2 GM/DL (3.2-5.2); ALT/SGPT 23 U/L (12-78); BILIRUBIN,DIRECT 0.1 MG/DL (0.0-0.2); BILIRUBIN,TOTAL 0.4 MG/DL (0.2-1.0); BLOOD UREA NITROGEN 26 MG/DL (7-18); CALCIUM LEVEL 8.6 MG/DL (8.5-10.1); CARBON DIOXIDE LEVEL 25 MEQ/L (21-32); CHLORIDE LEVEL 109 MEQ/L (98-107); CREATININE FOR GFR 0.99 MG/DL (0.70-1.30); GLOMERULAR FILTRATION RATE > 60.0 (>60); GLUCOSE, FASTING 103 MG/DL (70-100); LIPASE 91 U/L (73-393); POTASSIUM SERUM 3.8 MEQ/L (3.5-5.1); SODIUM LEVEL 141 MEQ/L (136-145); TOTAL PROTEIN 7.3 GM/DL (6.4-8.2)
[2018-08-09 04:03] VITALS: BP 138/74
== END 2018-08-09 04:12 | disposition home or self-care (01) ==
LOC: EDBD 22:47 → M ED 22:47
DX: R10.9 Unspecified abdominal pain (principal); K21.9 Gastro-esophageal reflux disease without esophagitis; F17.210 Nicotine dependence, cigarettes, uncomplicated; F99 Mental disorder, not otherwise specified; Z91.040 Latex allergy status; Z79.899 Other long term (current) drug therapy

== ENCOUNTER 2018-08-10 21:58 | Emergency (ER) | payer OTHER ==
[~2018-08-10] VITALS: Ht 175.3 cm; Wt 84.5 kg
[2018-08-10 23:36] LABS: HEMATOCRIT 46.8 % (42.0-52.0); HEMOGLOBIN 16.3 g/dl (13.5-17.5); MEAN CORPUSCULAR HEMOGLOBIN 32.3 pg (27.0-33.0); MEAN CORPUSCULAR HGB CONC 34.8 g/dl (32.0-36.5); MEAN CORPUSCULAR VOLUME 92.9 fl (80.0-96.0); PLATELET COUNT, AUTOMATED 225 10^3/uL (150-450); RED BLOOD COUNT 5.04 10^6/uL (4.30-6.10); WHITE BLOOD COUNT 11.2 10^3/uL (4.0-10.0)
[2018-08-10 23:46] LABS: INR 0.98; PROTHROMBIN TIME 13.1 SECONDS (12.1-14.4)
[2018-08-10 23:47] LABS: PARTIAL THROMBOPLASTIN TIME 27.3 SECONDS (25.4-37.6)
[2018-08-11 00:04] LABS: ALBUMIN 4.3 GM/DL (3.2-5.2); ALT/SGPT 23 U/L (12-78); BILIRUBIN,TOTAL 0.6 MG/DL (0.2-1.0); BLOOD UREA NITROGEN 22 MG/DL (7-18); CALCIUM LEVEL 9.3 MG/DL (8.5-10.1); CARBON DIOXIDE LEVEL 24 MEQ/L (21-32); CHLORIDE LEVEL 108 MEQ/L (98-107); CREATININE FOR GFR 0.85 MG/DL (0.70-1.30); GLOMERULAR FILTRATION RATE > 60.0 (>60); GLUCOSE, FASTING 82 MG/DL (70-100); POTASSIUM SERUM 4.4 MEQ/L (3.5-5.1); SODIUM LEVEL 139 MEQ/L (136-145); TOTAL PROTEIN 7.4 GM/DL (6.4-8.2)
[2018-08-11 00:10] VITALS: BP 115/68
[2018-08-11] MEDS ORDERED: ISOVUE-370 76% 100ML VIAL (Q9967) As Ordered ONE (00:16)
--- NOTE | 2018-08-11 01:19 | REPVR ---
EXAM: CT Abdomen and Pelvis With Contrast EXAM DATE/TIME: 08/11/2018 12:30 AM CLINICAL HISTORY: 32 years old, male; Pain; Abdominal pain; Other: Abd pain , rectal bleeding; Additional info: Abdominal pain, rectal bleeding TECHNIQUE: Imaging protocol: Axial computed tomography images of the abdomen and pelvis with intravenous contrast. Coronal and sagittal reformatted images were created and reviewed. Radiation optimization: All CT scans at this facility use at least one of these dose optimization techniques: automated exposure control; mA and/or kV adjustment per patient size (includes targeted exams where dose is matched to clinical indication); or iterative reconstruction. Contrast material: isovue 370 Contrast volume: 100 ml Contrast route: iv COMPARISON: CT ABD/PEL W/IV ORAL CONTRAS 08/26/2017 2:24 PM FINDINGS: Lower thorax: Slight bibasilar interstitial prominence with minimal infiltrate in the right middle lobe. ABDOMEN: Liver: Normal. No mass. Gallbladder and bile ducts: The gallbladder is contracted with no stones. Pancreas: Normal. No ductal dilation. Spleen: Normal. No splenomegaly. Adrenals: Normal. No mass. Kidneys and ureters: Normal. No hydronephrosis. Stomach and bowel: Normal. No obstruction. No mucosal thickening. Appendix: A normal appendix is seen. PELVIS: Bladder: There is urinary bladder wall thickening. Reproductive: Unremarkable as visualized. ABDOMEN and PELVIS: Intraperitoneal space: Normal. No free air. No significant fluid collection. Bones/joints: No acute fracture. No dislocation. Soft tissues: Unremarkable. Vasculature: Normal. No abdominal aortic aneurysm. Lymph nodes: Normal. No enlarged lymph nodes. IMPRESSION: 1. Slight bibasilar interstitial prominence with minimal infiltrate in the right middle lobe, new since 08/26/2017. 2. Urinary bladder wall thickening which is increased since prior study despite less distention of the bladder. Findings may reflect hypertrophic change or possibly cystitis. 3. Otherwise negative CT abdomen/pelvis. Electronically signed by: Jose Garcia On 08/11/2018 01:19:08 AM
[2018-08-11] MEDS ORDERED: ANUSOL HC 25MG SUPP PR ONE (01:45)
[2018-08-11] MEDS ORDERED: ANUS25SU PR (01:49)
[2018-08-11] MEDS ORDERED: MIRA3350 PO (01:49)
== END 2018-08-11 02:41 | disposition home or self-care (01) ==
LOC: M ED 21:58
DX: K92.2 Gastrointestinal hemorrhage, unspecified (principal); S36.60XA Unspecified injury of rectum, initial encounter; X58.XXXA Exposure to other specified factors, initial encounter; Y92.89 Other specified places as the place of occurrence of the external cause; F33.9 Major depressive disorder, recurrent, unspecified; F41.9 Anxiety disorder, unspecified; K21.9 Gastro-esophageal reflux disease without esophagitis; I73.9 Peripheral vascular disease, unspecified; Z79.899 Other long term (current) drug therapy; Z91.040 Latex allergy status; F17.210 Nicotine dependence, cigarettes, uncomplicated
CPT/HCPCS: 36415; 74177; 80053; 81001; 85027; 85610; 85730; 86850; 86900; 86901; 99284; Q9967

== ENCOUNTER 2022-11-16 13:14 | Emergency (ER) | payer OTHER ==
[~2022-11-16] VITALS: Ht 172.7 cm; Wt 99.9 kg
[~2022-11-16 13:14] MED LIST changes: +ANUS25SU PR; -BENZ-52 PO; +BENZ1TAB5 PO; +MIRA3350 PO; -OMEP40CA2 PO; +OMEP40CA4 PO; +QUET100T2 PO; -QUET1TAB8 PO; +TRAZ1TAB10 PO; -TRAZO50TA PO
[2022-11-16 13:15] VITALS: TEMP 97
[2022-11-16 17:12] LABS: BASO # 0.1 10^3/uL (0.0-0.2); BASO % 0.6 % (0.0-1.0); EOS # 0.4 10^3/uL (0.0-0.5); EOS % 3.4 % (0.0-3.0); HEMATOCRIT 46.7 % (42.0-52.0); HEMOGLOBIN 15.9 g/dl (13.5-17.5); LYMPH # 2.8 10^3/uL (1.5-5.0); LYMPH % 22.4 % (24.0-44.0); MEAN CORPUSCULAR HEMOGLOBIN 32.1 pg (27.0-33.0); MEAN CORPUSCULAR VOLUME 94.3 fl (80.0-96.0); MONO # 0.6 10^3/uL (0.0-0.8); NEUTROPHILS # 8.6 10^3/uL (1.5-8.5); PLATELET COUNT, AUTOMATED 257 10^3/uL (150-450); RED BLOOD COUNT 4.95 10^6/uL (4.30-6.10); WHITE BLOOD COUNT 12.6 10^3/uL (4.0-10.0)
[2022-11-16] MEDS ORDERED: ISOVUE-370 76% 100ML VIAL As Ordered ONE (17:19)
[2022-11-16] MEDS ORDERED: CLINDAMYCIN 150MG CAPSULE PO ONE (18:20)
[2022-11-16] MEDS ORDERED: CLEO300C2 PO (18:21)
[2022-11-16 18:35] VITALS: BP 123/76; O2SAT 99
== END 2022-11-16 18:36 | disposition home or self-care (01) ==
LOC: M ED 13:14
DX: L02.11 Cutaneous abscess of neck (principal); F17.200 Nicotine dependence, unspecified, uncomplicated; F12.10 Cannabis abuse, uncomplicated; K21.9 Gastro-esophageal reflux disease without esophagitis; Z91.040 Latex allergy status; Z79.899 Other long term (current) drug therapy
CPT/HCPCS: 36415; 70491; 80047; 85025; 99283; Q9967